=== PATIENT | male | born 1955 | race Caucasian/White ===

== ENCOUNTER → 2016-05-16 | Outpatient (CLI) | payer BC ==
--- NOTE | 2016-05-16 18:25 | CT ---
EXAMINATION TYPE: CT chest w con DATE OF EXAM: 05/16/2016 5:09 PM COMPARISON: 09/25/2015 HISTORY: follow up from prior scan per patient. CT DLP: 260.6 mGycm Automated exposure control for dose reduction was used. CONTRAST: CT scan of the chest is performed with IV Contrast, patient injected with 100 mL of Omnipaque 300. FINDINGS: There are diffuse emphysematous changes. Bilateral pleural effusions have resolved. Bronchiectasis at the lung bases suspected. Single tiny nodule left upper lobe noted too small to xavier racterize. There are groundglass changes predominate seen in the mid and lower lung zones bilaterally. 5 mm nodule within the right middle lobe image 38 was previously obscured due to the pleural fluid an d areas of consolidation. Retrospectively felt to be stable. Limited imaging the upper abdomen demonstrate postsurgical change involving the left renal fossa. The re is a soft tissue density measuring 5.7 cm near the upper margin of the left kidney which could rep resent postoperative seroma. Other etiologies not excluded. Hypertrophic and degenerative change of the spine noted. Shotty adenopathy noted on today's exam with no pathologic adenopathy seen. IMPRESSION: 1. Bilateral pleural effusions have resolved. 2. There is adenopathy within the mediastinum and hilum short axis measurement of 1.1 cm. Peribronchi al wall thickening is noted bilaterally of the mainstem bronchi. 3. Single tiny 2 mm nodule in the left upper lobe too small to characterize. 5 mm nodule in the right middle lobe was previously obscured due to the pleural effusion and consolidation but retrospectivel y BOTH felt to be stable. 4. There is reduced ill-defined attenuation in the left adrenal bed which likely related to previous surgery. More focal 2 cm area appears with peripheral calcification and measures 30 Hounsfield units. This is stable from the previous exam. This appears represent a solid nodule which likely related to previous adrenal nodule noted dating back to 2009.
== END | disposition home or self-care (01) ==
LOC: RADCTMAIN 16:41
PROVIDERS: ATTEND Family Medicine
DX: R91.8 Other nonspecific abnormal finding of lung field (principal); R59.0 Localized enlarged lymph nodes; J98.09 Other diseases of bronchus, not elsewhere classified
CPT/HCPCS: 71260; Q9967

== ENCOUNTER 2017-06-06 13:11 | Emergency (ER) | payer BC ==
--- NOTE | 2017-06-06 15:09 | ED ---
General Adult HPI - General Chief complaint: Arrhythmia/Palpitations Stated complaint: heart palpitations Time Seen by Provider: 06/06/17 14:25 Source: patient, RN notes reviewed, old records reviewed Mode of arrival: wheelchair Limitations: no limitations - History of Present Illness Initial comments: This is a 61-year-old male to the ER for evaluation of A. fib with RVR, patient be going in and out of A. fib with RVR for the last few days. Patient has history of A. fib with RVR taking all medications as prescribed. Patient has been avoiding going to the hospital but the heart rate jumped up earlier today, his heart rate is now resolved. Patient does have recent appointment with cardiology, patient coming in to ER for evaluation regards to possible treatment. Patient denies headache chest pain shortness of breath or abdominal pain. No recent fevers. No sick contacts no evidence of nausea vomiting or diarrhea - Related Data Home Medications Medication Instructions Recorded Confirmed Metoprolol Tartrate [Lopressor] 25 mg PO BID 02/28/17 06/06/17 Allergies Allergy/AdvReac Type Severity Reaction Status Date / Time amoxicillin AdvReac Nausea & Verified 06/06/17 14:47 Vomiting & Diarrhea Penicillins AdvReac Nausea & Verified 06/06/17 14:47 Vomiting & Diarrhea Review of Systems ROS Statement: Those systems with pertinent positive or pertinent negative responses have been documented in the HPI. ROS Other: All systems not noted in ROS Statement are negative. Past Medical History Past Medical History: Atrial Fibrillation, Cancer Additional Past Medical History / Comment(s): cancer on the rectum, surgically removed History of Any Multi-Drug Resistant Organisms: None Reported Additional Past Surgical History / Comment(s): surgical removal of cancer on the rectum Past Anesthesia/Blood Transfusion Reactions: No Reported Reaction Past Psychological History: No Psychological Hx Reported Smoking Status: Current every day smoker Past Alcohol Use History: Daily, Heavy Past Drug Use History: None Reported - Past Family History Mother Family Medical History: Cancer Father Family Medical History: Myocardial Infarction (MA) Additional Family Medical History / Comment(s): father from a acute MA at the age of 62 per pt. General Exam Limitations: no limitations General appearance: alert, in no apparent distress, anxious Head exam: Present: atraumatic, normocephalic, normal inspection Eye exam: Present: normal appearance, PERRL, EOMI. Absent: scleral icterus, conjunctival injection, periorbital swelling ENT exam: Present: normal exam, mucous membranes moist Neck exam: Present: normal inspection. Absent: tenderness, meningismus, lymphadenopathy Respiratory exam: Present: normal lung sounds bilaterally. Absent: respiratory distress, wheezes, rales, rhonchi, stridor Cardiovascular Exam: Present: regular rate, normal rhythm, normal heart sounds. Absent: systolic murmur, diastolic murmur, rubs, gallop, clicks GI/Abdominal exam: Present: soft, normal bowel sounds. Absent: distended, tenderness, guarding, rebound, rigid Extremities exam: Present: normal inspection, full ROM, normal capillary refill. Absent: tenderness, pedal edema, joint swelling, calf tenderness Back exam: Present: normal inspection Neurological exam: Present: alert, oriented X3, CN II-XII intact Psychiatric exam: Present: normal affect, normal mood Skin exam: Present: warm, dry, intact, normal color. Absent: rash Course Vital Signs 06/06/17 06/06/17 13:25 15:34 Temperature 98.1 F 98.2 F Pulse Rate 80 71 Respiratory 20 16 Rate Blood Pressure 140/80 143/84 O2 Sat by Pulse 99 99 Oximetry - Reevaluation(s) Reevaluation #1: the patient at length, patient without A. fib with RVR, Medical Decision Making - Medical Decision Making 61 male the ER for evaluation of possible A. fib with RVR, recent shortness of breath secondary to A. fib with RVR and anxiety. Patient will increase his metoprolol, patient states he would like to follow up with cardiology, he is taking anticoagulation, does not want be admitted to the hospital today. Disposition Clinical Impression: Atrial fibrillation, Atrial fibrillation with RVR, Palpitations Disposition: HOME SELF-CARE Condition: Good Instructions: A-fib (Atrial Fibrillation) (ED), Palpitations (ED) Referrals: Maylin Ceron MD [Primary Care Provider] - 1-2 days
[2017-06-06 15:35] VITALS: BP 143/84; PULSE 71; RESP 16; TEMP 98.2
--- NOTE | 2017-06-09 03:40 | CDI ---
Documentation Clarification OP Dear Wily CHAUHAN, DO Please do addendum to ED report for HPI , Physical exam and MDM. Thank you, Zelda Salomon Offset Proof Press Operator If you have any question, Please contact manager clinical pharmacy at [phone] [facility]
== END 2017-06-06 15:38 | disposition home or self-care (01) ==
LOC: EC 13:11
DX: I48.91 Unspecified atrial fibrillation (principal); F17.200 Nicotine dependence, unspecified, uncomplicated; Z85.048 Personal history of other malignant neoplasm of rectum, rectosigmoid junction, and anus; Z79.899 Other long term (current) drug therapy; Z88.0 Allergy status to penicillin
CPT/HCPCS: 93005; 99285

== ENCOUNTER → 2019-03-24 | Outpatient (CLI) | payer BC ==
[2019-03-24 11:32] LABS: African American GFR (CKD) >90 (>60 ml/min/1.73 sqM); Blood Urea Nitrogen 18 mg/dL (9-20)
--- NOTE | 2019-03-24 13:09 | CT ---
EXAMINATION TYPE: CT abdomen pelvis w con DATE OF EXAM: 03/24/2019 COMPARISON: 02/28/2017 HISTORY: Prostate cancer CONTRAST: CT scan of the abdomen and pelvis is performed with Oral Contrast and with IV Contrast, patient injec vicki with 100 mL of Isovue 300. FINDINGS: LUNG BASES-: No visible nodule. No infiltrate. LIVER/GB: No calcified gallstones. No space occupying hepatic lesion. Biliary tree is of normal ca liber. PANCREAS: No inflammation. No distinct mass. SPLEEN: No splenic enlargement. No lesion seen. ADRENALS: No nodule. No thickening. KIDNEYS/BLADDER: There is a fat containing mass left upper quadrant which is difficult to measure ho wever measures an estimated 13.5 x 8.0 cm. There is a solid nodule noted at the lower component of t his mass measuring 4.6 x 5.0 cm which is a new finding relative to the prior study. Also a new nodule is noted at the superior component of this mass measuring 5.8 x 3.7 cm. Smoothly marginated nodule w ithin this mass measures 2.3 cm in greatest dimension versus 2.1 cm previously. Also a new finding is a soft tissue mass arising from the lower pole of the left kidney measuring 5.9 x 4.0 cm. No hydrone phrosis. No nephrolithiasis. Urinary bladder grossly unremarkable. BOWEL: Normal appendix. Normal bowel caliber. No inflammation. GENITAL ORGANS: No gross abnormality. LYMPH NODES: No greater than 1cm abdominal or pelvic lymph nodes are appreciated. AORTA: No significant abnormality. OSSEOUS STRUCTURES: Severe degenerative changes at L5-S1 with grade 1 anterolisthesis. OTHER: No significant additional abnormality is seen. IMPRESSION: 1. Left upper quadrant fat-containing mass with areas of solid nodularity with several new nodules id entified. Findings are nonspecific however consider liposarcoma. There is also a new mass at the lowe r pole of the left kidney which is nonspecific.
--- NOTE | 2019-03-24 15:36 | NM ---
EXAMINATION TYPE: NM bone scan whole body DATE OF EXAM: 03/24/2019 COMPARISON: CT 03/24/2019, 05/16/2016 HISTORY: Prostate carcinoma Delayed whole-body scanning was performed following the injection of 24.0 mCi Tc 99m MDP. Images acq uired 3.5 hours post injection. FINDINGS: The mass in the retroperitoneum on the left does not show associated uptake. Uptake at the costoverte bral angle of the right posterior rib at the neck level is likely degenerative, similarly there is up take in the cervical spine. The lower levels present left likely degenerative. Soft tissue uptake is remarkable for some displacement of the left kidney due to patient's known mass. Some urine contamina tion is present over the scrotum and perineum. Uptake at the lower lumbar spine likely due to facet a rthropathy change. Uptake in the shoulders, sternoclavicular joints is likely degenerative. IMPRESSION: Abnormal displacement of the left kidney corresponds with patient's CT scan findings and retroperitoneal mass. Abnormal bone uptake as described, no osseous metastatic disease is suspected.
== END | disposition home or self-care (01) ==
LOC: RADNMMAIN 10:43
PROVIDERS: ATTEND Urology
DX: N28.89 Other specified disorders of kidney and ureter (principal); R19.02 Left upper quadrant abdominal swelling, mass and lump; K68.9 Other disorders of retroperitoneum; C61 Malignant neoplasm of prostate; Z88.0 Allergy status to penicillin
CPT/HCPCS: 82565; 84520; 74177; 36415; 78306; A9503; Q9967 ×2

== ENCOUNTER → 2019-04-14 | Day surgery (SDC) | payer BC ==
[~2019-04-14] MED LIST: ALPRAZolam 0.5 MG TAB PO STA; HYDROmorphone 0.5 MG/0.5 ML SYRINGE IVP STA
[2019-04-14 09:36] VITALS: RESP 16; TEMP 98.2
[2019-04-14 09:39] LABS: Mean Platelet Volume 7.1; Platelet Count 218 k/uL (150-450)
[2019-04-14 09:56] LABS: INR 0.9 (<1.2); Partial Thromboplastin Time 25.9 sec (22.0-30.0); Prothrombin Time 10.1 sec (9.0-12.0)
--- NOTE | 2019-04-14 12:20 | CT ---
EXAMINATION TYPE: CT biopsy renal LT DATE OF EXAM: 04/14/2019 COMPARISON: 03/24/2019 HISTORY: Request for posterior left renal mass biopsy CT DLP: 562.1 mGycm The procedure was explained to the patient. The risks, complications, benefits, and alternatives wer e discussed and any questions were answered. Informed consent was obtained. Patient was placed pron e on the CT table and prepped and draped in the usual sterile fashion. Utilizing CT guidance, an 18 gauge core biopsy needle access into the left renal renal mass was achie esther and two 18 gauge core samples were obtained. There were 2 FNA samples obtained with a 22-gauge C hiba needle. Pathology pending. The patient was stable throughout the procedure and remained stable u ashkan discharge. IMPRESSION: 1. Successful 18 gauge core biopsy and FNA of the left renal mass.
[2019-04-14 14:53] VITALS: BP 133/83; PULSE 76
== END ==
LOC: RADPROMAIN 08:44
PROVIDERS: ATTEND Urology
DX: D49.512 Neoplasm of unspecified behavior of left kidney (principal); Z88.0 Allergy status to penicillin; Z90.89 Acquired absence of other organs; Z85.048 Personal history of other malignant neoplasm of rectum, rectosigmoid junction, and anus; Z85.46 Personal history of malignant neoplasm of prostate
CPT/HCPCS: 86900; 86901; 85049; 85610; 85730; 86850; 36415; 50200; 77012; J1170; 88173; 88305; 88341; 88342

== ENCOUNTER → 2021-03-17 | Outpatient (CLI) | payer BC ==
[2021-03-17 10:19] LABS: Basophils # (A) 0.1 k/uL (0-0.2); Basophils % (A) 1 %; Eosinophils # (A) 0.2 k/uL (0-0.7); Eosinophils % (A) 2 %; HCT 37.9 % (39.0-53.0); HGB 12.7 gm/dL (13.0-17.5); Lymphocytes # (A) 0.5 k/uL (1.0-4.8); Lymphocytes % (A) 7 %; MCH 32.3 pg (25.0-35.0); MCHC 33.4 g/dL (31.0-37.0); MCV 96.7 fL (80.0-100.0); Mean Platelet Volume 7.9; Monocytes # (A) 0.8 k/uL (0-1.0); Monocytes % (A) 10 %; Neutrophils # (A) 5.7 k/uL (1.3-7.7); Neutrophils % (A) 77 %; Platelet Count 395 k/uL (150-450); RBC 3.92 m/uL (4.30-5.90); RDW 14.2 % (11.5-15.5); WBC 7.4 k/uL (3.8-10.6)
[2021-03-17 10:35] LABS: ALT 23 U/L (4-49); AST 39 U/L (17-59); African American GFR (CKD) >90 (>60 ml/min/1.73 sqM); Albumin 3.7 g/dL (3.5-5.0); Albumin/Globulin Ratio 1.2; Alkaline Phosphatase 104 U/L (38-126); Anion Gap 11 mmol/L; Blood Urea Nitrogen 17 mg/dL (9-20); Calcium 9.2 mg/dL (8.4-10.2); Carbon Dioxide 23 mmol/L (22-30); Chloride 101 mmol/L (98-107); Globulin 3.2 g/dL; Glucose 106 mg/dL (74-99); Non-African American GFR(CKD) 86 (>60 ml/min/1.73 sqM); Potassium 4.1 mmol/L (3.5-5.1); Sodium 135 mmol/L (137-145); Total Bilirubin 0.6 mg/dL (0.2-1.3); Total Protein 6.9 g/dL (6.3-8.2)
== END | disposition home or self-care (01) ==
LOC: LABWHC1 09:52
PROVIDERS: ATTEND Physician Assistant
DX: C78.7 Secondary malignant neoplasm of liver and intrahepatic bile duct (principal); C49.9 Malignant neoplasm of connective and soft tissue, unspecified; C48.0 Malignant neoplasm of retroperitoneum
CPT/HCPCS: 36415; 80053; 85025